=== PATIENT | male | born 1960 | race Caucasian/White ===

== ENCOUNTER 2021-12-06 04:00 | Day surgery (SDC) | payer OTHER ==
[2021-12-06] MEDS ORDERED: ONDANSETRON 4 MG/2 ML VIAL ONE (07:38)
[2021-12-06] MEDS ORDERED: KETOROLAC TROMETHAMINE 30 MG/1 ML VIAL ONE (07:38)
[2021-12-06] MEDS ORDERED: LIDOCAINE HCL/PF 2% SDV 5ML VIAL ONE (07:38)
[2021-12-06] MEDS ORDERED: DEXAMETHASONE SOD PHOSPHATE 4 MG/1 ML VIAL ONE (07:38)
[2021-12-06] MEDS ORDERED: ROCURONIUM BROMIDE 50 MG/5 ML SYRINGE ONE ×3 (07:39→10:34)
[2021-12-06] MEDS ORDERED: SUCCINYLCHOLINE CHLORIDE 200 MG/10 ML SYRINGE ONE (07:39)
[2021-12-06] MEDS ORDERED: PROPOFOL 20 ML ONE ×3 (07:39→11:55)
[2021-12-06] MEDS ORDERED: MIDAZOLAM HCL 2 MG/2 ML SINGLE DOSE VIAL ONE (09:20)
[2021-12-06] MEDS ORDERED: ceFAZolin SODIUM 1 GM VIAL IVPB ONE (09:45)
[2021-12-06] MEDS ORDERED: NEOSTIGMINE METHYLSULFATE 0.5 MG/ML - 10 ML MDV ONE (12:00)
[2021-12-06] MEDS ORDERED: oxyCODONE HCL 5 MG TABLET PO PRN (12:18)
[2021-12-06] MEDS ORDERED: ONDANSETRON 4 MG/2 ML VIAL IVPUSH PRN (12:18)
[2021-12-06 12:24] VITALS: BMI 20.6
[2021-12-06] MEDS ORDERED: LACTATED RINGERS SOLUTION 1,000 ML IV SCH (12:30)
[2021-12-06] MEDS ORDERED: ACETAMINOPHEN 500 MG TABLET (FP) PO ONE (13:15)
[2021-12-06 15:28] VITALS: RESP 18
[2021-12-06 16:01] VITALS: BP 146/90; PULSE 101; TEMP 97.6
== END 2021-12-06 16:15 | disposition home or self-care (01) ==
LOC: JASU-SURG 04:00
PROVIDERS: ATTEND Surgery
PROC: 0YUA4JZ Supplement Bilateral Inguinal Region with Synthetic Substitute, Percutaneous Endoscopic Approach (ICD-10-PCS; principal; 2021-12-06 08:00)
DX: K40.20 Bilateral inguinal hernia, without obstruction or gangrene, not specified as recurrent (principal)
CPT/HCPCS: 94760